=== PATIENT | female | born 1935 | race Caucasian/White ===

== ENCOUNTER 2018-03-10 08:37 | Emergency (ER) | payer MEDICARE, BC ==
[~2018-03-10] VITALS: Ht 167.6 cm; Wt 90.9 kg
[~2018-03-10 08:37] MED LIST: ICAPS AREDS1 TAB.SA PO; PROZAC40 MG PO; TYLENOL W/CODEI1 TAB PO
[2018-03-10 08:45] VITALS: Ht 167.6 cm; Wt 90.9 kg
[2018-03-10 09:50] LABS: APPEARANCE CLEAR (CLEAR); BILIRUBIN NEGATIVE (NEGATIVE); COLOR YELLOW (YELLOW); GLUCOSE NEGATIVE (NEGATIVE); KETONE NEGATIVE (NEGATIVE); NITRITE NEGATIVE (NEGATIVE); PROTEIN NEGATIVE (NEGATIVE); SPECIFIC GRAVITY 1.015 (1.005-1.020); UROBILINOGEN NORMAL (NORMAL)
[2018-03-10] MEDS ORDERED: ULTRAM50 MG PO (10:15)
[2018-03-10 11:05] VITALS: BP 182/71
== END 2018-03-10 10:53 | disposition home or self-care (01) ==
LOC: D.ER 08:37
PROVIDERS: Family Medicine
DX: M25.511 Pain in right shoulder (principal)

== ENCOUNTER → 2018-04-11 07:51 | Outpatient (CLI) | payer MEDICARE, BC ==
[2018-03-10 08:45] VITALS: BMI 32.3
[~2018-04-11 07:51] MED LIST changes: +ULTRAM50 MG PO
== END | disposition home or self-care (01) ==
LOC: D.CT 07:51
DX: M25.511 Pain in right shoulder (principal)